=== PATIENT | female | born 1970 | race Caucasian/White ===

== ENCOUNTER 2016-12-14 14:29 | Emergency (ER) | payer SELFPAY ==
--- NOTE | 2016-12-14 15:05 | Emergency Department Record ---
History of Present Illness - General Chief complaint: Cold Stated complaint: SINUS RUNNING,DIZZY Time Seen by Provider: 12/14/16 15:04 Source: Patient Mode of Arrival: Ambulatory Limitations: No limitations - History of Present Illness Initial comments: The patient is here due to a 3 day hx of clear nasal drainage and congestion. She does have a chronic cough but denies any fever, chills, ST or SOB. She has felt a little dizzy today and felt she should not go to work so she decided to come to the ER. She denies any MARCUM, vomiting, diarrhea or visual changes. MD complaint: Other Onset/Timin -: Days(s) Consistency: Constant Improves with: None Worsens with: None Associated Symptoms: Rhinorrhea - Related Data Previous Rx's Medication Instructions Recorded Atenolol [Tenormin] 100 mg PO DAILY #90 tab 09/26/16 Benzonatate [Tessalon] 1 cap PO Q8H PRN #20 cap 12/14/16 Fluticasone Propionate [Flonase] 2 spray EACH NARES DAILY #1 bottle 12/14/16 Allergies Allergy/AdvReac Type Severity Reaction Status Date / Time prednisone AdvReac MUSCLE PAIN Verified 09/26/16 09:27 Travel Screening - Travel/Exposure Within Last 30 Days Have you traveled within the last 30 days?: No Review of Systems Constitutional: Reports: Chills, Fever, Malaise Eyes: Denies: Eye discharge ENT: Reports: Congestion Respiratory: Reports: Cough. Denies: Dyspnea Cardiovascular: Denies: Arrhythmia, Chest pain Endocrine: Reports: Fatigue Past Medical History - SOCIAL HISTORY Smoking Status: Current every day smoker Alcohol Use: None Drug Use: None - RESPIRATORY Hx Respiratory Disorders: No - CARDIOVASCULAR Hx Cardio Disorders: Yes Hx Hypertension: Yes - NEURO Hx Neuro Disorders: No - GI Hx GI Disorders: No - Hx Genitourinary Disorders: No - ENDOCRINE Hx Endocrine Disorders: No - MUSCULOSKELETAL Hx Musculoskeletal Disorders: No - PSYCH Hx Psych Problems: No - HEMATOLOGY/ONCOLOGY Hx Hematology/Oncology Disorders: No Family Medical History Any Significant Family History?: Yes Hx Diabetes: Father, Mother, Grandparents Hx Heart Disease: Father Hx HTN: Mother, Grandparents Physical Exam - General General Appearance: Alert, Oriented x3, Cooperative, No acute distress - Head Head exam: Atraumatic, Normocephalic, Normal inspection - Eye Eye exam: Normal appearance, PERRL - ENT ENT exam: Normal orophraynx, TM's normal bilaterally Nasal Exam: Discharge (clear.). negative: Normal inspection Throat exam: Normal inspection. negative: Tonsillar erythema, Tonsillar exudate - Neck Neck exam: Normal inspection. negative: Lymphadenopathy, Meningismus, Tenderness - Respiratory Respiratory exam: Normal lung sounds bilaterally. negative: Decreased breath sounds, Respiratory distress, Wheezes - Cardiovascular Cardiovascular Exam: Regular rate, Normal rhythm, Normal heart sounds - GI/Abdominal GI/Abdominal exam: Soft, Normal bowel sounds. negative: Tenderness - Extremities Extremities exam: Normal inspection, Full ROM, Normal capillary refill. negative: Tenderness Course Vital Signs 12/14/16 14:50 Temperature 98.3 F Pulse Rate 57 L Respiratory 18 Rate Blood Pressure 130/75 Pulse Ox 98 - Reevaluation(s) Reevaluation #1: The patient is resting comfortably. I did discuss the test results with her that were WNL. I do believe she has a viral URI and will discharge her on Flonase and Tessalon and she is to continue the OTC cold medicines. She is to see her PCP later this week if not better and return to the ER if worse. 12/14/16 15:46 Medical Decision Making - Data Complexity MDM Data: Labs Ordered and/or Reviewed (Flu: Neg), X-Ray Ordered and/or Reviewed - Radiology Data Radiology results: Report reviewed (CXR: Neg) Disposition Disposition: Discharge Clinical Impression: Viral URI Instructions: Cold Symptoms (ED) Additional Instructions: Please continue your Mucinex and add the Flonase and Tessalon as directed. Please see your PCP if not better in 3 days. She is to return to the ER for any worsening symptoms. Prescriptions: Fluticasone Propionate [Flonase] 2 spray EACH NARES DAILY #1 bottle Benzonatate [Tessalon] 1 cap PO Q8H PRN #20 cap PRN Reason: Cough Forms: Patient Portal Access Time of Disposition: 15:50
[2016-12-14 15:36] LABS: INFLUENZA A NEGATIVE (NEGATIVE); INFLUENZA B NEGATIVE (NEGATIVE)
--- NOTE | 2016-12-16 15:48 | RADIOLOGY REPORT ---
EXAM: CHEST 2 VIEWS HISTORY: COUGH AND CONGESTION FOR THE PAST FEW DAYS. TECHNIQUE: PA and lateral upright views of the chest were obtained. COMPARISON: July 13, 2009. FINDINGS: The heart, mediastinum, and pulmonary vasculature are normal. The lungs are clear. There are no acute infiltrates or effusions. There is no pneumothorax. Mild degenerative changes are present within the spine and shoulders. IMPRESSION: STABLE CHEST WITH NO ACUTE PROCESS IDENTIFIED. JOB NUMBER: [id number] MTDD
== END 2016-12-14 15:59 | disposition home or self-care (01) ==
LOC: ER 14:29
DX: J06.9 Acute upper respiratory infection, unspecified (principal); R05 Cough
CPT/HCPCS: 71020; 87400; 99283

== ENCOUNTER 2017-05-04 13:14 | Emergency (ER) | payer SELFPAY ==
[2017-05-04] MEDS ORDERED: ATENOLOL 50 MG TABLET PO ONE (13:32)
[2017-05-04] MEDS ORDERED: ASPIRIN 81 MG CHEWABLE TABLET PO ONE (13:33)
--- NOTE | 2017-05-04 13:34 | Emergency Department Record ---
History of Present Illness - General Chief Complaint: Palpitations Stated Complaint: HEART RACING,DIZZY,NAUSEA Time Seen by Provider: 05/04/17 13:17 Source: Patient Mode of Arrival: Ambulatory Limitations: No limitations - History of Present Illness Initial Comments: 46 yo female presents to ED with a CC of "heart racing, nausea, and not feeling right". Patient denies chest pain or difficulty breathing, but reports a history of HTN and has been out of her medication for almost 2 weeks. Patient reports that "I can feel my pulse in my neck". Patient denies fevers, chills, or recent illness. MD Complaint: Palpitations Onset/Timin -: Hour(s) Associated Symptoms: Diaphoresis, Nausea/vomiting - Related Data Home Medications Medication Instructions Recorded Confirmed Last Taken Ferrous Sulfate [Iron] 325 mg PO TID 05/04/17 05/04/17 Unknown Glucosamine Sulfate 1,000 mg PO TID 05/04/17 05/04/17 Unknown [place]-3 Fatty Acids/Fish Oil [Fish 1 each PO TID 05/04/17 05/04/17 Unknown Oil 1,000 mg Capsule] Previous Rx's Medication Instructions Recorded Atenolol 100 mg PO DAILY #15 tab 05/04/17 Allergies Allergy/AdvReac Type Severity Reaction Status Date / Time prednisone AdvReac MUSCLE PAIN Verified 09/26/16 09:27 Travel Screening - Travel/Exposure Within Last 30 Days Have you traveled within the last 30 days?: No Review of Systems Constitutional: Denies: Chills, Fever, Malaise, Night sweats Eyes: Denies: Eye discharge ENT: Denies: Congestion, Ear pain, Epistaxis Respiratory: Denies: Cough, Dyspnea Cardiovascular: Reports: Palpitations. Denies: Chest pain, Dyspnea on exertion Endocrine: Denies: Fatigue, Heat or cold intolerance Gastrointestinal: Reports: Nausea. Denies: Abdominal pain, Vomiting Genitourinary: Denies: Incontinence, Retention Musculoskeletal: Denies: Arthralgia, Back pain, Gout, Joint swelling Skin: Denies: Bruising, Change in color Neurological: Denies: Abnormal gait, Confusion, Headache, Seizure Psychiatric: Denies: Anxiety Hematological/Lymphatic: Denies: Anemia, Blood Clots Past Medical History - SOCIAL HISTORY Smoking Status: Current every day smoker Alcohol Use: None Drug Use Detail:: Marijuana - RESPIRATORY Hx Respiratory Disorders: No - CARDIOVASCULAR Hx Cardio Disorders: Yes Hx Hypertension: Yes - NEURO Hx Neuro Disorders: No - GI Hx GI Disorders: No - Hx Genitourinary Disorders: No - ENDOCRINE Hx Endocrine Disorders: No - MUSCULOSKELETAL Hx Musculoskeletal Disorders: No - PSYCH Hx Psych Problems: No - HEMATOLOGY/ONCOLOGY Hx Hematology/Oncology Disorders: No Family Medical History Any Significant Family History?: Yes Hx Diabetes: Father, Mother, Grandparents Hx Heart Disease: Father Hx HTN: Mother, Grandparents Physical Exam - General General Appearance: Alert, Oriented x3, Cooperative, Mild distress Limitations: No limitations - Head Head exam: Atraumatic, Normocephalic, Normal inspection Head exam detail: negative: Abrasion, Contusion, Resendez's sign, General tenderness, Hematoma, Laceration - Eye Eye exam: Normal appearance. negative: Conjunctival injection, Periorbital swelling, Periorbital tenderness, Scleral icterus - ENT Ear exam: negative: Auricular hematoma, Auricular trauma Nasal Exam: negative: Active bleeding, Discharge, Dried blood Mouth exam: negative: Drooling, Laceration, Muffled voice - Neck Neck exam: Normal inspection. negative: Meningismus, Tenderness - Respiratory Respiratory exam: Normal lung sounds bilaterally. negative: Rales, Respiratory distress, Rhonchi, Stridor - Cardiovascular Cardiovascular Exam: Regular rate, Normal rhythm, Normal heart sounds - GI/Abdominal GI/Abdominal exam: Soft. negative: Rebound, Rigid, Tenderness - Rectal Rectal exam: Deferred - exam: Deferred - Extremities Extremities exam: Normal inspection. negative: Calf tenderness, Pedal edema, Tenderness - Back Back exam: Denies: CVA tenderness (R), CVA tenderness (L) - Neurological Neurological exam: Alert, Normal gait, Oriented X3 - Psychiatric Psychiatric exam: Normal affect, Normal mood - Skin Skin exam: Normal color. 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 Will attempt to lower the patient's blood pressure as her symptoms may be realted to the elevated level and initiate cardiac evaluation given the patient's atypical symptoms and EKG findings. Reevaluation #3: 05/04/17 14:20 Labs reviewed and are grossly unremarkable for an acute process. Patient was updated on her results thus far, reports improvement in her symptoms. Will continue to monitor. Reevaluation #4: 05/04/17 18:07 Repeat Troponin is negative for myocardial injury. Patient's repeat blood pressure is 168/96, and the patient reports that her symptoms are greatly improved. Will re-initiate the patient's Atenolol daily until she is able to establish with a new PCP. Patient agrees with the plan as discussed. Medical Decision Making - Lab Data Result diagrams: 05/04/17 13:30 05/04/17 13:30 Disposition Disposition: Discharge Clinical Impression: Hypertensive urgency Disposition: Home, Self-Care Condition: (2) Stable Instructions: Hypertension (ED) Additional Instructions: Return to ED if your symptoms worsen or if you have any concerns. Follow-up in the [facility] for further cardiac evaluation in 1-3 days as directed. Atenolol as directed. Prescriptions: Atenolol 100 mg PO DAILY #15 tab Forms: Patient Portal Access Time of Disposition: 18:12
[2017-05-04 13:40] LABS: BASO % 0.9 % (0-6); EOS % 3.2 % (0-6); GRAN % 59.1 % (47-80); HEMATOCRIT 45.2 % (35.0-47.0); HEMOGLOBIN 13.4 gm/dl (11.6-16.0); LYMPH % 28.2 % (16-45); MEAN CELL VOLUME 78.5 fl (81-97); MEAN CORPUSCULAR HGB CONC 29.6 g/dl (32-36); MEAN PLATELET VOLUME 9.6 fl (7.4-10.4); MONO % 8.6 % (0-9); PLATELET COUNT 337 K/uL (130-400); RED BLOOD COUNT 5.76 M/uL (3.80-5.40); RED CELL DISTRIBUTION WIDTH 19.9 % (11.5-14.5); WHITE BLOOD COUNT W/O DIFF 4.4 K/uL (4.2-12.2)
[2017-05-04 13:41] LABS: MEAN CORPUSCULAR HEMOGLOBIN 23.2 pg (27-33)
[2017-05-04 13:53] LABS: ALB/GLOB RATIO 1.4 (1.1-1.8); ALBUMIN 4.4 gm/dL (3.5-5.0); ALKALINE PHOSPHATASE 65 U/L (38-126); ALT/SGPT 14 U/L (9-52); AST/SGOT 15 U/L (14-36); BILIRUBIN,TOTAL 0.35 mg/dL (0.2-1.3); BLOOD UREA NITROGEN 5 mg/dL (7-17); CREATININE 0.6 mg/dL (0.52-1.04); EST GLOMERULAR FILTRATION RATE > 60 ml/min; GLUCOSE,RANDOM 98 mg/dL (70-110); TOTAL PROTEIN 7.6 gm/dL (6.3-8.2)
[2017-05-04 14:05] LABS: CKMB 1.1 ug/L (0-6)
[2017-05-04 14:08] LABS: TROPONIN I < 0.012 ng/mL (0.00-0.034)
[2017-05-04 14:33] LABS: CREATINE PHOSPHOKINASE 56 U/L (30-135)
[2017-05-04] MEDS ORDERED: CLONIDINE HCL 0.1 MG TABLET PO ONE (15:08)
[2017-05-04] MEDS ORDERED: NITROGLYCERIN 0.4MG SL TABLET #25 BTL SL ONE (16:21)
== END 2017-05-04 18:27 | disposition home or self-care (01) ==
LOC: ER 13:14
DX: I16.0 Hypertensive urgency (principal); R61 Generalized hyperhidrosis; R42 Dizziness and giddiness; R11.0 Nausea; I10 Essential (primary) hypertension; F17.210 Nicotine dependence, cigarettes, uncomplicated
CPT/HCPCS: 80053; 82550; 82553; 84443; 84484; 85025; 99284

== ENCOUNTER 2017-11-13 07:11 | Emergency (ER) | payer SELFPAY ==
[2017-11-13] MEDS ORDERED: ASPIRIN 81 MG CHEWABLE TABLET PO ONE (07:27)
--- NOTE | 2017-11-13 07:32 | Emergency Department Record ---
History of Present Illness - General Chief Complaint: Chest Pain Stated Complaint: CHEST PAIN Time Seen by Provider: 11/13/17 07:25 Source: Patient Mode of Arrival: Ambulatory - History of Present Illness Initial Comments: chest pain worse with a cough and with palpation of the left anterior chest and she has had a cough for 3 days with clear sputum and hoarse voice and she has been using cold medications and she has not taken her BP meds for 6 months to a year and hasn't seen her DrZayda in a long time. Dr. Anderson her last DRZayda Family history of cardiac disease. pM hypertension noncompliant MD Complaint: Chest pain Onset/Timin -: Hour(s) Onset: Awoke with symptoms Pain Location: Left chest Pain Radiation: None Severity: Moderate Severity scale (1-10): 7 Quality: Tightness Consistency: Constant Improves With: Nothing Worsens With: Exertion, Inspiration, Movement Treatments Prior to Arrival: None - Related Data Allergies Allergy/AdvReac Type Severity Reaction Status Date / Time prednisone AdvReac MUSCLE PAIN Verified 11/13/17 07:28 Travel Screening - Travel/Exposure Within Last 30 Days Have you traveled within the last 30 days?: No - Travel/Exposure Within Last Year Have you traveled outside the [place] in the last year?: No - Additonal Travel Details Have you been exposed to anyone with a communicable illness?: No - Travel Symptoms Symptom Screening: None Review of Systems Reviewed: No additional complaints except as noted below Constitutional: Reports: As per HPI, Chills. Denies: Fever, Malaise, Night sweats, Weakness, Weight change Eyes: Reports: As per HPI. Denies: Eye discharge, Eye pain, Photophobia, Vision change ENT: Reports: As per HPI, Congestion, Throat pain. Denies: Dental pain, Ear pain, Epistaxis, Hearing loss Respiratory: Reports: As per HPI, Cough. Denies: Dyspnea, Hemoptysis, Stridor, Wheezes Cardiovascular: Reports: As per HPI. Denies: Arrhythmia, Chest pain, Dyspnea on exertion, Edema, Murmurs, Orthopnea, Palpitations, Paroxysmal nocturnal dyspnea, Rheumatic Fever, Syncope Endocrine: Reports: As per HPI. Denies: Fatigue, Heat or cold intolerance, Polydipsia, Polyuria Gastrointestinal: Reports: As per HPI. Denies: Abdominal pain, Constipation, Diarrhea, Hematemesis, Hematochezia, Melena, Nausea, Vomiting Genitourinary: Reports: As per HPI. Denies: Abnormal menses, Discharge, Dyspareunia, Dysuria, Frequency, Hematuria, Incontinence, Retention, Urgency Musculoskeletal: Reports: As per HPI. Denies: Arthralgia, Back pain, Gout, Joint swelling, Myalgia, Neck pain Skin: Reports: As per HPI. Denies: Bruising, Change in color, Change in hair/ nails, Lesions, Pruritus, Rash Neurological: Reports: As per HPI. Denies: Abnormal gait, Confusion, Headache, Numbness, Paresthesias, Seizure, Tingling, Tremors, Vertigo, Weakness Psychiatric: Reports: As per HPI. Denies: Anxiety, Auditory hallucinations, Depression, Homicidal thoughts, Suicidal thoughts, Visual hallucinations Hematological/Lymphatic: Reports: As per HPI. Denies: Anemia, Blood Clots, Easy bleeding, Easy bruising, Swollen glands Past Medical History - SOCIAL HISTORY Smoking Status: Current every day smoker - RESPIRATORY Hx Respiratory Disorders: No - CARDIOVASCULAR Hx Cardio Disorders: Yes Hx Hypertension: Yes - NEURO Hx Neuro Disorders: No - GI Hx GI Disorders: No - Hx Genitourinary Disorders: No - ENDOCRINE Hx Endocrine Disorders: No - MUSCULOSKELETAL Hx Musculoskeletal Disorders: No - PSYCH Hx Psych Problems: No - HEMATOLOGY/ONCOLOGY Hx Hematology/Oncology Disorders: No Family Medical History Any Significant Family History?: No Hx Diabetes: Father, Mother, Grandparents Hx Heart Disease: Father, Mother Hx HTN: Mother, Grandparents Physical Exam - General General Appearance: Alert, Oriented x3, Cooperative, No acute distress - Head Head exam: Normal inspection - Eye Eye exam: Normal appearance, PERRL Pupils: Normal accommodation - ENT ENT exam: Normal exam, Mucous membranes moist, Normal external ear exam, Normal orophraynx, TM's normal bilaterally Ear exam: Normal external inspection. negative: External canal tenderness Nasal Exam: Normal inspection. negative: Discharge, Sinus tenderness Mouth exam: Normal external inspection, Tongue normal Teeth exam: Normal inspection. negative: Dental caries Throat exam: Normal inspection. negative: Tonsillar erythema, Tonsillar exudate - Neck Neck exam: Normal inspection, Full ROM. negative: Tenderness - Respiratory Respiratory exam: Normal lung sounds bilaterally. negative: Respiratory distress - Cardiovascular Cardiovascular Exam: Regular rate, Normal rhythm, Normal heart sounds, Other ( reproducible chest pain on palpation of the left anterior chest and with coughing) - GI/Abdominal GI/Abdominal exam: Soft, Normal bowel sounds. negative: Tenderness - Rectal Rectal exam: Deferred - exam: Deferred - Extremities Extremities exam: Normal inspection, Full ROM, Normal capillary refill. negative: Tenderness - Back Back exam: Reports: Normal inspection, Full ROM. Denies: Muscle spasm, Rash noted, Tenderness - Neurological Neurological exam: Alert, Normal gait, Oriented X3, Reflexes normal - Psychiatric Psychiatric exam: Normal affect, Normal mood - Skin Skin exam: Dry, Intact, Normal color, Warm Course Vital Signs 11/13/17 07:14 Temperature 98.0 F Pulse Rate 79 Respiratory 18 Rate Blood Pressure 180/120 Pulse Ox 97 trop t neg and CKMB 4.2 - Reevaluation(s) Reevaluation #1: Discussed case with Dr. Gilbert, Patient wants to go to [facility] 11/13/17 09:37 Medical Decision Making - Data Complexity MDM Data: Labs Ordered and/or Reviewed, X-Ray Ordered and/or Reviewed (negative) , EKG Ordered and/or Reviewed (No acute changes,) - Lab Data Result diagrams: 11/13/17 07:22 11/13/17 07:22 Disposition Clinical Impression: Bronchitis, Angina at rest, Elevated CK-MB level Chest pain Qualifiers: Chest pain type: unspecified Qualified Code(s): R07.9 - Chest pain, unspecified Disposition: Acute Care Hospital Transfer Condition: (2) Stable Instructions: Chest Pain (ED) Forms: Patient Portal Access Time of Disposition: 10:58 Quality - Quality Measures Quality Measures: N/A - Blood Pressure Screening Does Patient Have Any of the Following: No, Active Dx of HTN Blood Pressure Classification: Hypertensive Reading Systolic Measurement: 180 Diastolic Measurement: 120 Screening for High Blood Pressure: Patient Exclusion, Hx of HTN [G9744]
[2017-11-13] MEDS ORDERED: METOPROLOL SUCC 50 MG TABLET PO ONE (07:34)
[2017-11-13 07:37] LABS: HEMOGLOBIN 13.3 gm/dl (11.6-16.0); MEAN CORPUSCULAR HGB CONC 30.9 g/dl (32-36); MEAN PLATELET VOLUME 9.7 fl (7.4-10.4); PLATELET COUNT 296 K/uL (130-400); RED BLOOD COUNT 5.31 M/uL (3.80-5.40); RED CELL DISTRIBUTION WIDTH 16.4 % (11.5-14.5); WHITE BLOOD COUNT W/O DIFF 9.6 K/uL (4.2-12.2)
[2017-11-13 07:49] LABS: PLATELET ESTIMATE NORMAL (NORMAL)
[2017-11-13 07:52] LABS: BLOOD UREA NITROGEN 9 mg/dL (6-20); CREATININE 0.5 mg/dL (0.5-0.9); EST GLOMERULAR FILTRATION RATE > 60 mL/min
[2017-11-13 07:55] LABS: GLUCOSE,RANDOM 102 mg/dL (74-109)
[2017-11-13 08:00] LABS: CKMB 4.2 ng/mL (<3.77)
[2017-11-13] MEDS ORDERED: NITROGLYCERIN 0.4MG SL TABLET #25 BTL SL PRN (08:59)
--- NOTE | 2017-11-14 00:06 | RADIOLOGY REPORT ---
EXAM: CHEST 2 VIEWS HISTORY: COUGH FOR TWO DAYS AND MID STERNAL CHEST PAIN SINCE EARLY THIS MORNING. TECHNIQUE: PA and lateral views. COMPARISON: Two-view chest 12/14/16. FINDINGS: Cardiomegaly. No definite acute infiltrate seen and no pleural effusion or pneumothorax evident. Mild spurring in the spine. IMPRESSION: MILD CARDIOMEGALY. MILD SPURRING IN THE SPINE. NO ACUTE INFILTRATE IDENTIFIED. JOB NUMBER: [id number] MTDD
== END 2017-11-13 11:47 | disposition short-term general hospital (02) ==
LOC: ER 07:11
DX: I20.8 Other forms of angina pectoris (principal); J20.9 Acute bronchitis, unspecified; R07.89 Other chest pain; R74.8 Abnormal levels of other serum enzymes; I10 Essential (primary) hypertension; F17.210 Nicotine dependence, cigarettes, uncomplicated
CPT/HCPCS: 71020; 80048; 82550; 82553; 84484; 85027; 85730; 93005; 93010; 99285

== ENCOUNTER 2018-12-30 15:15 | Emergency (ER) | payer SELFPAY ==
[2018-12-30] MEDS ORDERED: AMOXICILLIN/POTASSIUM CLAV 875MG/125MG TABLET PO ONE (15:47)
--- NOTE | 2018-12-30 15:54 | Emergency Department Record ---
History of Present Illness - General Chief complaint: Dental Stated complaint: DENTAL PAIN Time Seen by Provider: 12/30/18 15:35 Source: Patient Mode of Arrival: Ambulatory Limitations: No limitations - History of Present Illness Initial comments: pt has abscessed tooth r upper jaw MD complaint: Tooth pain Onset/Timin -: Hour(s) Location: Tooth # Severity scale (1-10): 8 Quality: Sharp Consistency: Constant Improves with: None Worsens with: None Context- Dental: History of dental caries, Poor dental care Associated Symptoms: Toothache - Related Data Previous Rx's Medication Instructions Recorded Amoxicillin/Potassium Clav 1 each PO BID #20 tablet 12/30/18 [Augmentin 875Mg/125Mg] Hydrocodone/Acetaminophen [[place] 1 each PO Q6HR #10 tablet 12/30/18 5-325 Tablet] Allergies Allergy/AdvReac Type Severity Reaction Status Date / Time prednisone AdvReac MUSCLE PAIN Verified 11/13/17 07:28 Travel Screening - Travel/Exposure Within Last 30 Days Have you traveled within the last 30 days?: No Review of Systems Reviewed: No additional complaints except as noted below Constitutional: Reports: As per HPI. Denies: Chills, Fever, Malaise, Night sweats, Weakness, Weight change Eyes: Reports: As per HPI. Denies: Eye discharge, Eye pain, Photophobia, Vision change ENT: Reports: As per HPI, Dental pain. Denies: Congestion, Ear pain, Epistaxis , Hearing loss, Throat pain Respiratory: Reports: As per HPI. Denies: Cough, Dyspnea, Hemoptysis, Stridor, Wheezes Cardiovascular: Reports: As per HPI. Denies: Arrhythmia, Chest pain, Dyspnea on exertion, Edema, Murmurs, Orthopnea, Palpitations, Paroxysmal nocturnal dyspnea, Rheumatic Fever, Syncope Endocrine: Reports: As per HPI. Denies: Fatigue, Heat or cold intolerance, Polydipsia, Polyuria Gastrointestinal: Reports: As per HPI. Denies: Abdominal pain, Constipation, Diarrhea, Hematemesis, Hematochezia, Melena, Nausea, Vomiting Genitourinary: Reports: As per HPI. Denies: Abnormal menses, Discharge, Dyspareunia, Dysuria, Frequency, Hematuria, Incontinence, Retention, Urgency Musculoskeletal: Reports: As per HPI. Denies: Arthralgia, Back pain, Gout, Joint swelling, Myalgia, Neck pain Skin: Reports: As per HPI. Denies: Bruising, Change in color, Change in hair/ nails, Lesions, Pruritus, Rash Neurological: Reports: As per HPI. Denies: Abnormal gait, Confusion, Headache, Numbness, Paresthesias, Seizure, Tingling, Tremors, Vertigo, Weakness Psychiatric: Reports: As per HPI. Denies: Anxiety, Auditory hallucinations, Depression, Homicidal thoughts, Suicidal thoughts, Visual hallucinations Hematological/Lymphatic: Reports: As per HPI. Denies: Anemia, Blood Clots, Easy bleeding, Easy bruising, Swollen glands Past Medical History - SOCIAL HISTORY Smoking Status: Current every day smoker - RESPIRATORY Hx Respiratory Disorders: No - CARDIOVASCULAR Hx Cardio Disorders: Yes Hx Hypertension: Yes - NEURO Hx Neuro Disorders: No - GI Hx GI Disorders: No - Hx Genitourinary Disorders: No - ENDOCRINE Hx Endocrine Disorders: No - MUSCULOSKELETAL Hx Musculoskeletal Disorders: No - PSYCH Hx Psych Problems: No - HEMATOLOGY/ONCOLOGY Hx Hematology/Oncology Disorders: No Family Medical History Any Significant Family History?: Yes Hx Diabetes: Father, Mother, Grandparents Hx Heart Disease: Father, Mother Hx HTN: Mother, Grandparents Physical Exam - General General Appearance: Alert, Oriented x3, Cooperative, Mild distress - Head Head exam: Normal inspection - Eye Eye exam: Normal appearance, PERRL, EOMI Pupils: Normal accommodation - ENT ENT exam: Normal exam, Mucous membranes moist, Normal external ear exam, Normal orophraynx Ear exam: Normal external inspection. negative: External canal tenderness Nasal Exam: Normal inspection. negative: Discharge, Sinus tenderness Mouth exam: Normal external inspection, Tongue normal, Other (swelling of r side of face) Teeth exam: Dental caries, Dental tenderness # Throat exam: Normal inspection. negative: Tonsillar erythema, Tonsillar exudate Image of Mouth/Teeth: 1 - abscessed tooth - Neck Neck exam: Normal inspection, Full ROM. negative: Tenderness - Respiratory Respiratory exam: Normal lung sounds bilaterally. negative: Respiratory distress - Cardiovascular Cardiovascular Exam: Regular rate, Normal rhythm, Normal heart sounds - GI/Abdominal GI/Abdominal exam: Soft, Normal bowel sounds. negative: Tenderness - Rectal Rectal exam: Deferred - exam: Deferred - Extremities Extremities exam: Normal inspection, Full ROM, Normal capillary refill. negative: Tenderness - Back Back exam: Reports: Normal inspection, Full ROM. Denies: Muscle spasm, Rash noted, Tenderness - Neurological Neurological exam: Alert, Normal gait, Oriented X3, Reflexes normal - Psychiatric Psychiatric exam: Normal affect, Normal mood - Skin Skin exam: Dry, Intact, Normal color, Warm Course Vital Signs 12/30/18 15:34 Temperature 99.4 F Pulse Rate 115 H Respiratory 20 Rate Blood Pressure 170/106 Pulse Ox 98 Disposition Disposition: Discharge Clinical Impression: Dental abscess Hypertension Qualifiers: Hypertension type: essential hypertension Qualified Code(s): I10 - Essential ( primary) hypertension Disposition: Home, Self-Care Condition: (1) Good Instructions: Dental Abscess (ED), Hypertension (ED) Additional Instructions: follow up with dentist charles. return if worse. sleep elevated Prescriptions: Hydrocodone/Acetaminophen [[place] 5-325 Tablet] 1 each PO Q6HR #10 tablet Amoxicillin/Potassium Clav [Augmentin 875Mg/125Mg] 1 each PO BID #20 tablet Forms: Patient Portal Access, Return to Work/School Quality - Quality Measures Quality Measures: N/A - Blood Pressure Screening Does Patient Have Any of the Following: No Blood Pressure Classification: Hypertensive Reading Systolic Measurement: 170 Diastolic Measurement: 106 Screening for High Blood Pressure: < First Hypertensive BP, F/U Documented > [ G8950] First Hypertensive Follow-up Interventions: Follow-up with rescreen GT 1 day and LT 4 weeks.
== END 2018-12-30 16:09 | disposition home or self-care (01) ==
LOC: ER 15:15
DX: K04.7 Periapical abscess without sinus (principal); I10 Essential (primary) hypertension; F17.210 Nicotine dependence, cigarettes, uncomplicated
CPT/HCPCS: 99282

== ENCOUNTER 2019-11-10 07:09 | Emergency (ER) | payer SELFPAY ==
--- NOTE | 2019-11-10 07:31 | Emergency Department Record ---
History of Present Illness - General Chief complaint: Flu Like Symptoms Stated complaint: FLU LIKE SYMPTOMS Time Seen by Provider: 11/10/19 07:10 Source: Patient Mode of Arrival: Ambulatory Limitations: No limitations - History of Present Illness Initial comments: 49 yo female presents with about three days of cough, congestion, runny nose, nausea, body aches, headaches. No diarrhea. No blood in the vomit. She is a smoker. She did not have a flu shot. The cough is non productive at this time. No chest or abdominal pain. MD Complaint: Generalized weakness Onset/Timin -: Days(s) Location: Generalized Severity: Mild Quality: Aching Improves with: None Worsens with: Other (coughinig) Context: Other Associated Symptoms: Other - [place] Coma Scale Eye Response: (4) Open spontaneously Motor Response: (6) Obeys commands Verbal Response: (5) Oriented Kitty Total: 15 - Related Data Home Medications Medication Instructions Recorded Confirmed Last Taken Ferrous Sulfate [Iron] 325 mg PO DAILY 11/10/19 11/10/19 11/09/19 Potassium 99 mg PO DAILY 11/10/19 11/10/19 11/09/19 Previous Rx's Medication Instructions Recorded Azithromycin [Zithromax] 250 mg PO DAILY #6 tab 11/10/19 Allergies Allergy/AdvReac Type Severity Reaction Status Date / Time prednisone AdvReac MUSCLE PAIN Verified 11/13/17 07:28 Travel Screening - Travel/Exposure Within Last 30 Days Have you traveled within the last 30 days?: No - Travel/Exposure Within Last Year Have you traveled outside the [place] in the last year?: No - Additonal Travel Details Have you been exposed to anyone with a communicable illness?: No - Travel Symptoms Symptom Screening: Headache Review of Systems Constitutional: Reports: Chills, Fever, Malaise Eyes: Denies: Eye discharge, Eye pain, Photophobia, Vision change ENT: Reports: Congestion, Throat pain. Denies: Ear pain Respiratory: Reports: Cough. Denies: Dyspnea, Stridor, Wheezes Cardiovascular: Denies: Chest pain, Edema, Palpitations, Syncope Endocrine: Denies: Fatigue Gastrointestinal: Reports: Nausea, Vomiting. Denies: Abdominal pain, Diarrhea Genitourinary: Denies: Dysuria, Urgency Musculoskeletal: Reports: Myalgia. Denies: Arthralgia, Back pain Skin: Denies: Bruising, Change in color, Rash Neurological: Denies: Headache Psychiatric: Denies: Anxiety Hematological/Lymphatic: Denies: Easy bleeding, Easy bruising Past Medical History - SOCIAL HISTORY Smoking Status: Current every day smoker Alcohol Use: Rare Drug Use: Heavy Drug Use Detail:: Marijuana - RESPIRATORY Hx Respiratory Disorders: No - CARDIOVASCULAR Hx Cardio Disorders: Yes Hx Hypertension: Yes - NEURO Hx Neuro Disorders: No - GI Hx GI Disorders: No - Hx Genitourinary Disorders: No - ENDOCRINE Hx Endocrine Disorders: No - MUSCULOSKELETAL Hx Musculoskeletal Disorders: No - PSYCH Hx Psych Problems: No - HEMATOLOGY/ONCOLOGY Hx Hematology/Oncology Disorders: No Family Medical History Any Significant Family History?: No Hx Diabetes: Father, Mother, Grandparents Hx Heart Disease: Father, Mother Hx HTN: Mother, Grandparents Physical Exam - General General Appearance: Alert, Oriented x3, Cooperative, No acute distress Limitations: No limitations - Head Head exam: Atraumatic - Eye Eye exam: Normal appearance. negative: Conjunctival injection - ENT ENT exam: Normal exam, Mucous membranes moist Ear exam: Normal external inspection Nasal Exam: Normal inspection Mouth exam: Normal external inspection Teeth exam: Normal inspection Throat exam: Normal inspection - Neck Neck exam: Normal inspection, Full ROM. negative: Tenderness - Respiratory Respiratory exam: Normal lung sounds bilaterally. negative: Accessory muscle use, Decreased breath sounds, Prolonged expiratory, Rhonchi, Stridor, Wheezes - Cardiovascular Cardiovascular Exam: Regular rate, Normal rhythm, Normal heart sounds - GI/Abdominal GI/Abdominal exam: Soft. negative: Tenderness - Rectal Rectal exam: Deferred - exam: Deferred - Extremities Extremities exam: Normal inspection. negative: Calf tenderness, Pedal edema - Back Back exam: Denies: CVA tenderness (R), CVA tenderness (L) - Neurological Neurological exam: Alert, Normal gait, Oriented X3. negative: Altered - Psychiatric Psychiatric exam: Normal affect, Normal mood - Skin Skin exam: Dry, Intact, Normal color, Warm Course Vital Signs 11/10/19 11/10/19 07:12 07:13 Temperature 98.2 F 98.2 F Pulse Rate 93 H Pulse Rate [ 90 Pulse Ox Probe] Respiratory 16 20 Rate Blood Pressure 190/102 Blood Pressure 190/102 [Left Arm] Pulse Ox 98 98 Disposition Disposition: Discharge Clinical Impression: Bronchitis, Sinusitis Disposition: Home, Self-Care Condition: (1) Good Instructions: Acute Bronchitis (ED) Additional Instructions: Review this ER visit and the tests performed with your family doctor Call your doctor for the next available follow up appointment Return to the ER for a recheck immediately if worse, any new concerns or questions Take the prescriptions provided as directed Prescriptions: Azithromycin [Zithromax] 250 mg PO DAILY #6 tab Forms: Patient Portal Access Time of Disposition: 07:41 Quality - Quality Measures Quality Measures: N/A - Blood Pressure Screening Does Patient Have Any of the Following: No Blood Pressure Classification: Hypertensive Reading Systolic Measurement: 190 Diastolic Measurement: 102 Screening for High Blood Pressure: < Pre-Hypertensive BP, F/U Documented > [G8950] Pre-Hypertensive Follow-up Interventions: Referral to alternative/primary care provider.
[2019-11-10 07:36] LABS: INFLUENZA A NEGATIVE (NEGATIVE)
[2019-11-10 07:37] LABS: INFLUENZA B NEGATIVE (NEGATIVE)
== END 2019-11-10 07:47 | disposition home or self-care (01) ==
LOC: ER 07:09
DX: J20.9 Acute bronchitis, unspecified (principal); J01.90 Acute sinusitis, unspecified; I10 Essential (primary) hypertension; F17.210 Nicotine dependence, cigarettes, uncomplicated; F12.90 Cannabis use, unspecified, uncomplicated
CPT/HCPCS: 87400; 99283

== ENCOUNTER 2019-11-13 14:48 | Emergency (ER) | payer SELFPAY ==
--- NOTE | 2019-11-13 15:07 | Emergency Department Record ---
History of Present Illness - General Chief Complaint: Back Pain/Injury Stated Complaint: lower back pain Time Seen by Provider: 11/13/19 14:57 Source: Patient Mode of Arrival: Ambulatory Limitations: No limitations - History of Present Illness Initial Comments: The patient is here due to R lower back pain for 4 days. The pain is sharp and stabbing and intermittently radiates down the back of the R leg. She denies any R leg numbness or weakness and also any bowel or bladder issues. The pain is much worse with any bending, lifting, or twisting. The patient states she has a hx of similar issues and believes it is her sciatica. She denies any trauma or injury but does do a lot of lifting with her job. MD Complaint: Back pain Onset/Timin -: Days(s) Similar Symptoms Previously: Yes Place: Home Radiation: Right leg Severity scale (1-10): 8 Quality: Sharp Consistency: Constant Improves With: Immobilization Worsens With: Movement, Sitting upright Context: Unknown Associated Symptoms: Denies other symptoms - Related Data Previous Rx's Medication Instructions Recorded Cyclobenzaprine HCl [Flexeril] 10 mg PO TID PRN #20 tablet 11/13/19 Naproxen [Naprosyn] 500 mg PO BID #14 tablet. 11/13/19 Allergies Allergy/AdvReac Type Severity Reaction Status Date / Time prednisone AdvReac MUSCLE PAIN Verified 11/13/17 07:28 Travel Screening - Travel/Exposure Within Last 30 Days Have you traveled within the last 30 days?: No Review of Systems Constitutional: Denies: Chills, Fever Eyes: Denies: Eye discharge ENT: Denies: Congestion Respiratory: Denies: Cough, Dyspnea Past Medical History - SOCIAL HISTORY Smoking Status: Current every day smoker - RESPIRATORY Hx Respiratory Disorders: No - CARDIOVASCULAR Hx Cardio Disorders: Yes Hx Hypertension: Yes - NEURO Hx Neuro Disorders: No - GI Hx GI Disorders: No - Hx Genitourinary Disorders: No - ENDOCRINE Hx Endocrine Disorders: No - MUSCULOSKELETAL Hx Musculoskeletal Disorders: No - PSYCH Hx Psych Problems: No - HEMATOLOGY/ONCOLOGY Hx Hematology/Oncology Disorders: No Family Medical History Any Significant Family History?: Yes Hx Diabetes: Father, Mother, Grandparents Hx Heart Disease: Father, Mother Hx HTN: Mother, Grandparents Physical Exam - General General Appearance: Alert, Oriented x3, Cooperative, No acute distress - Head Head exam: Atraumatic, Normocephalic, Normal inspection - Eye Eye exam: Normal appearance, PERRL - Neck Neck exam: Normal inspection, Full ROM. negative: Tenderness - Respiratory Respiratory exam: Normal lung sounds bilaterally - Cardiovascular Cardiovascular Exam: Regular rate, Normal rhythm, Normal heart sounds - GI/Abdominal GI/Abdominal exam: Soft, Normal bowel sounds. negative: Tenderness - Extremities Extremities exam: Normal inspection, Full ROM, Normal capillary refill, Other (Neg SLR bilaterally.). negative: Tenderness - Back Back exam: Reports: Normal inspection, Paraspinal tenderness (R lower SI joint area.). Denies: Vertebral tenderness - Neurological Neurological exam: Alert, Normal gait, Oriented X3, Reflexes normal (The patellar and achilles reflexes are 2+ and equal bilaterally.). negative: Abnormal gait, Altered, Motor sensory deficit Course Vital Signs 11/13/19 14:51 Temperature 97.8 F Pulse Rate 84 Respiratory 18 Rate Pulse Ox 97 - Reevaluation(s) Reevaluation #1: The patient is doing better at this time. She states the pain is much better and she is up walking without difficulty and only mild pain. I did discuss the patient's elevated BP with her and she states she has been without any BP meds for months. She is encouraged to get into a PCP for further evaluation. 11/13/19 15:29 Disposition Disposition: Discharge Clinical Impression: Low back pain Qualifiers: Chronicity: acute Back pain laterality: right Sciatica presence: unspecified whether sciatica present Qualified Code(s): M54.5 - Low back pain Disposition: Home, Self-Care Condition: (2) Stable Instructions: Low Back Strain (ED) Additional Instructions: Please rest and please take the next 2 days off work. Take the Naprosyn and Flexeril as directed and please see a family doctor for recheck later this week. Please also have your elevated blood pressure evaluated by your family doctor also. Return to the ER for any worsening pain, leg weakness, numbness, or any bowel or bladder incontinence or inability to go. Prescriptions: Cyclobenzaprine HCl [Flexeril] 10 mg PO TID PRN #20 tablet PRN Reason: Pain Naproxen [Naprosyn] 500 mg PO BID #14 tablet.dr Forms: Patient Portal Access Time of Disposition: 15:32 Quality - Quality Measures Quality Measures: N/A - Blood Pressure Screening View Details: Yes Does Patient Have Any of the Following: Active Dx of HTN Systolic Measurement: ~ Screening for High Blood Pressure: Patient Exclusion, Hx of HTN [G9744]
[2019-11-13] MEDS: KETOROLAC 30 MG/ML VIAL IM ONE (15:13)
== END 2019-11-13 15:42 | disposition home or self-care (01) ==
LOC: ER 14:48
DX: M54.5 Low back pain (principal); I10 Essential (primary) hypertension; F17.210 Nicotine dependence, cigarettes, uncomplicated
CPT/HCPCS: 96372; 99284; J1885